=== PATIENT | female | born 1980 | race American Indian/Alaskan Native ===

== ENCOUNTER 2020-10-24 10:38 | Observation (INO) | payer SELFPAY ==
--- NOTE | 2020-10-24 10:52 | Emergency Department Report ---
Blank Doc - Documentation Documentation: 40-year-old female that presents with CP and SOB. HX of heroin use and last e pisode was 2 days ago. 1- This is a initial triage assessment/medical screening only. Full assessment and work-up will be completed once the patient is in proper hospital gown, ED bed and in a private room setting. This initial assessment/diagnostic orders/clinical plan/ treatment(s) is/are subject to change based on pt's health status, clinical progression and re-assessment by fellow clinical providers in the ED. Further treatment and workup at subsequent clinical providers discretion. Patient/guardians urged not to elope from ED as their condition may be serious if not clinically assessed and managed. 2-cardiac workup
[2020-10-24 12:13] LABS: Basophils % (Auto) 0.6 % (0.0-1.8); Eosinophils % (Auto) 0.6 % (0.0-4.3); Hematocrit 41.9 % (30.3-42.9); Hemoglobin 13.7 gm/dl (10.1-14.3); Lymphocytes # (Auto) 1.5 K/mm3 (1.2-5.4); Lymphocytes % (Auto) 27.3 % (13.4-35.0); Mean Corpuscular HGB Conc 33 % (30-34); Mean Corpuscular Volume 80 fl (79-97); Monocytes # (Auto) 0.3 K/mm3 (0.0-0.8); Monocytes % (Auto) 6.3 % (0.0-7.3); Platelet Count 268 K/mm3 (140-440); Red Blood Count 5.24 M/mm3 (3.65-5.03); Red Cell Distribution Width 14.7 % (13.2-15.2)
[2020-10-24 12:25] LABS: Partial Thromboplastin Time 29.2 Sec. (24.2-36.6)
[2020-10-24 12:37] LABS: Alanine Aminotransferase 13 units/L (7-56); Albumin 4.4 g/dL (3.9-5); Blood Urea Nitrogen 8 mg/dL (7-17); Calcium 9.6 mg/dL (8.4-10.2); Hemolysis Index 0
[2020-10-24 12:38] LABS: BUN/Creatinine Ratio 13
--- NOTE | 2020-10-24 13:13 | XRay Report ---
CHEST 2 VIEWS INDICATION / CLINICAL INFORMATION: Chest Pain. COMPARISON: None available. FINDINGS: SUPPORT DEVICES: None. HEART / MEDIASTINUM: No significant abnormality. LUNGS / PLEURA: No significant pulmonary or pleural abnormality. No pneumothorax. ADDITIONAL FINDINGS: No significant additional findings. IMPRESSION: 1. No acute findings. Signer Name: Luis Markham MD Signed: 10/24/2020 1:09 PM Workstation Name: [id number]
[2020-10-24] MEDS ORDERED: cloNIDine 0.2 MG TAB PO ONE ×2 (17:27→19:00)
[2020-10-24] MEDS ORDERED: ONDANSETRON 4 MG/2 ML INJ IV ONE (17:36)
[2020-10-24] MEDS ORDERED: MORPHINE 4 MG/1 ML INJ IV ONE (17:36)
--- NOTE | 2020-10-24 17:42 | Emergency Department Report ---
ED Chest Pain HPI - General Chief Complaint: Chest Pain Stated Complaint: CHEST PAIN/HERION WITHDRAWLS Time Seen by Provider: 10/24/20 10:49 Source: patient Mode of arrival: Ambulatory Limitations: No Limitations - History of Present Illness Initial Comments: 40-year-old female with history of heroin use disorder presents complaining of mid substernal and right-sided chest pain since last night. The patient states that she last used heroin 4 days ago. She says she snorts heroin and has never used IV drugs. She says that for the past 3 days she has been suffering from symptoms typical of opiate withdrawal first her including pain all over, gener alized abdominal pain, and some mild nausea without vomiting. However, she reports that the chest pain is new and different and started last night and has been constant since then. She states the pain radiates to the back. She also has had some paresthesias in her bilateral fingertips. She has not tried anything for her symptoms. There are no known aggravating or alleviating factors. She denies any associated shortness of breath, palpitations, radiation to the jaw or arms, focal weakness, headache, back pain, neck pain, fever, dysuria, vaginal bleeding, vaginal discharge, or any other complaints. - Related Data Previous Rx's Medication Instructions Recorded Last Taken Type AtorvaSTATin [Lipitor] 40 mg PO QHS #30 tablet 10/26/20 Unknown Rx Famotidine [Pepcid] 20 mg PO BID #60 tablet 10/26/20 Unknown Rx Losartan [Cozaar] 50 mg PO QDAY #30 tablet 10/26/20 Unknown Rx NIFEdipine XL [Procardia Xl] 60 mg PO Q12HR #60 tab 10/26/20 Unknown Rx oxyCODONE /ACETAMINOPHEN [Percocet 1 tab PO Q6H PRN #7 tablet 10/26/20 Unknown Rx 5/325 mg] traMADoL [Ultram 50 MG tab] 50 mg PO Q6H PRN #10 tablet 10/26/20 Unknown Rx Allergies Allergy/AdvReac Type Severity Reaction Status Date / Time aspirin Allergy Vomiting Verified 10/24/20 21:50 ibuprofen [From Motrin] Allergy Vomiting Verified 10/24/20 21:50 Heart Score - HEART Score History: Moderately suspicious EKG: Normal Age: < 45 Risk factors: 1-2 risk factors Troponin: < normal limit HEART Score: 2 - EKG Read Time Time EKG Completed: 10:52 EKG Read Time: 10:59 ED Review of Systems ROS: Stated complaint: CHEST PAIN/HERION WITHDRAWLS Other details as noted in HPI Constitutional: denies: chills, fever Eyes: denies: eye pain, vision change ENT: denies: throat pain, congestion Respiratory: denies: cough, shortness of breath Cardiovascular: chest pain. denies: palpitations, syncope Gastrointestinal: abdominal pain, nausea. denies: vomiting, diarrhea, constipation, melena Genitourinary: denies: dysuria, frequency, discharge Musculoskeletal: back pain. denies: joint swelling Skin: denies: rash, lesions Neurological: paresthesias. denies: headache, weakness, numbness Psychiatric: anxiety. denies: auditory hallucinations, visual hallucinations ED Past Medical Hx - Past Medical History Previous Medical History?: Yes Additional medical history: heroin x 2 years - Surgical History Past Surgical History?: No - Medications Home Medications: Home Medications Medication Instructions Recorded Confirmed Last Taken Type AtorvaSTATin [Lipitor] 40 mg PO QHS #30 tablet 10/26/20 Unknown Rx Famotidine [Pepcid] 20 mg PO BID #60 tablet 10/26/20 Unknown Rx Losartan [Cozaar] 50 mg PO QDAY #30 tablet 10/26/20 Unknown Rx NIFEdipine XL [Procardia Xl] 60 mg PO Q12HR #60 tab 10/26/20 Unknown Rx oxyCODONE /ACETAMINOPHEN [Percocet 1 tab PO Q6H PRN #7 tablet 10/26/20 Unknown Rx 5/325 mg] traMADoL [Ultram 50 MG tab] 50 mg PO Q6H PRN #10 tablet 10/26/20 Unknown Rx ED Physical Exam - General Limitations: No Limitations - Other Other exam information: GENERAL: Well developed and well nourished. Tearful and appears to be in pain. HEAD: Normocephalic. No obvious signs of trauma. ENT: Moist mucous membranes. EYES: Extraocular movements are intact. Pupils are equal round and reactive to light bilaterally NECK: Supple. Full ROM is intact. Trachea is midline. LUNGS: Nonlabored breathing. Equal chest rise bilaterally. Clear to auscultation bilaterally. CARDIOVASCULAR: Regular rate and rhythm. No murmurs or rubs. CHEST: There is tenderness of the mid-substernal and right side of the chest just superior to the breat. No erythema, fluctuance, or skin changes. VASCULAR: Cap refill < 2 seconds. 2+ peripheral pulses in all four extremities ABDOMEN: Abdomen is soft and nondistended. There is mild diffuse tenderness in all 4 quadrants of the abdomen without guarding or rebound tenderness. No hernias SKIN: Skin is warm and slightly diaphoretic NEURO: Patient is awake, alert, and oriented. vp lab II-XII grossly intact. No focal deficits. Normal motor and sensory exam throughout. Normal speech. MUSCULOSKELETAL: No obvious deformities. No significant tenderness. Normal ROM throughout. BACK/SPINE: No midline tenderness or step-offs of the C/T/L spine. No costovertebral angle tenderness. ED Course Vital Signs 10/24/20 10/24/20 10/24/20 10:47 17:45 18:37 Temperature 98.5 F Pulse Rate 82 79 82 Respiratory 22 16 Rate Blood Pressure 202/109 Blood Pressure 195/95 201/103 [Left] O2 Sat by Pulse 100 99 100 Oximetry 10/24/20 10/24/20 10/24/20 19:55 20:04 20:16 Temperature Pulse Rate 78 Respiratory 19 Rate Blood Pressure 184/84 Blood Pressure [Left] O2 Sat by Pulse 99 100 Oximetry 10/24/20 10/24/20 10/24/20 20:19 20:21 20:31 Temperature Pulse Rate Respiratory Rate Blood Pressure 184/84 184/84 174/82 Blood Pressure [Left] O2 Sat by Pulse 100 99 99 Oximetry 10/24/20 10/24/20 10/24/20 20:41 20:51 21:01 Temperature Pulse Rate Respiratory Rate Blood Pressure 174/82 174/82 174/82 Blood Pressure [Left] O2 Sat by Pulse 99 98 99 Oximetry 10/24/20 10/24/20 10/24/20 21:11 21:21 21:52 Temperature Pulse Rate Respiratory Rate Blood Pressure 174/82 174/82 184/101 Blood Pressure [Left] O2 Sat by Pulse 98 100 73 L Oximetry 10/24/20 10/24/20 10/25/20 22:04 22:14 00:39 Temperature Pulse Rate 74 Respiratory 18 Rate Blood Pressure 184/101 184/101 Blood Pressure 148/77 [Left] O2 Sat by Pulse 99 Oximetry 10/25/20 01:36 Temperature Pulse Rate Respiratory Rate Blood Pressure Blood Pressure [Left] O2 Sat by Pulse 99 Oximetry RADHA score - Radha Score Age > 65: (0) No Aspirin use within the Past 7 Days: (0) No 3 or more CAD Risk Factors: (0) No 2 or more Angina events in past 24 hrs: (0) No Known CAD with more than 50% Stenosis: (0) No Elevated Cardiac Markers: (0) No ST Deviation Greater than 0.5mm: (0) No RADHA Score: 0 ED Medical Decision Making - Lab Data Result diagrams: 10/24/20 22:55 10/25/20 04:35 Lab Results 10/24/20 10/24/20 10/24/20 Range/Units 11:35 11:35 11:35 WBC 5.5 (4.5-11.0) K/mm3 RBC 5.24 H (3.65-5.03) M/mm3 Hgb 13.7 (10.1-14.3) gm/dl Hct 41.9 (30.3-42.9) % MCV 80 (79-97) fl MCH 26 L (28-32) pg MCHC 33 (30-34) % RDW 14.7 (13.2-15.2) % Plt Count 268 (140-440) K/mm3 Lymph % (Auto) 27.3 (13.4-35.0) % [place] % (Auto) 6.3 (0.0-7.3) % Eos % (Auto) 0.6 (0.0-4.3) % Baso % (Auto) 0.6 (0.0-1.8) % Lymph # (Auto) 1.5 (1.2-5.4) K/mm3 [place] # (Auto) 0.3 (0.0-0.8) K/mm3 Eos # (Auto) 0.0 (0.0-0.4) K/mm3 Baso # (Auto) 0.0 (0.0-0.1) K/mm3 Seg Neutrophils % 65.2 (40.0-70.0) % Seg Neutrophils # 3.6 (1.8-7.7) K/mm3 PT (12.2-14.9) Sec. INR (0.87-1.13) APTT (24.2-36.6) Sec. Sodium 134 L (137-145) mmol/L Potassium 3.9 (3.6-5.0) mmol/L Chloride 98.9 (98-107) mmol/L Carbon Dioxide 25 (22-30) mmol/L Anion Gap 14 mmol/L BUN 8 (7-17) mg/dL Creatinine 0.6 (0.6-1.2) mg/dL Estimated GFR > 60 ml/min BUN/Creatinine Ratio 13 % Glucose 100 (65-100) mg/dL Calcium 9.6 (8.4-10.2) mg/dL Total Bilirubin 0.20 (0.1-1.2) mg/dL AST 12 (5-40) units/L ALT 13 (7-56) units/L Alkaline Phosphatase 54 (35-129) units/L Troponin T (0.00-0.029) ng/mL Total Protein 7.3 (6.3-8.2) g/dL Albumin 4.4 (3.9-5) g/dL Albumin/Globulin Ratio 1.5 % HCG, Qual Negative (Negative) Salicylates (2.8-20.0) mg/dL Acetaminophen (10.0-30.0) ug/mL Plasma/Serum Alcohol (0-0.07) % 10/24/20 10/24/20 10/24/20 Range/Units 11:35 11:35 11:35 WBC (4.5-11.0) K/mm3 RBC (3.65-5.03) M/mm3 Hgb (10.1-14.3) gm/dl Hct (30.3-42.9) % MCV (79-97) fl MCH (28-32) pg MCHC (30-34) % RDW (13.2-15.2) % Plt Count (140-440) K/mm3 Lymph % (Auto) (13.4-35.0) % [place] % (Auto) (0.0-7.3) % Eos % (Auto) (0.0-4.3) % Baso % (Auto) (0.0-1.8) % Lymph # (Auto) (1.2-5.4) K/mm3 [place] # (Auto) (0.0-0.8) K/mm3 Eos # (Auto) (0.0-0.4) K/mm3 Baso # (Auto) (0.0-0.1) K/mm3 Seg Neutrophils % (40.0-70.0) % Seg Neutrophils # (1.8-7.7) K/mm3 PT 13.8 (12.2-14.9) Sec. INR 1.00 (0.87-1.13) APTT 29.2 (24.2-36.6) Sec. Sodium (137-145) mmol/L Potassium (3.6-5.0) mmol/L Chloride (98-107) mmol/L Carbon Dioxide (22-30) mmol/L Anion Gap mmol/L BUN (7-17) mg/dL Creatinine (0.6-1.2) mg/dL Estimated GFR ml/min BUN/Creatinine Ratio % Glucose (65-100) mg/dL Calcium (8.4-10.2) mg/dL Total Bilirubin (0.1-1.2) mg/dL AST (5-40) units/L ALT (7-56) units/L Alkaline Phosphatase (35-129) units/L Troponin T < 0.010 (0.00-0.029) ng/mL Total Protein (6.3-8.2) g/dL Albumin (3.9-5) g/dL Albumin/Globulin Ratio % HCG, Qual (Negative) Salicylates < 0.3 L (2.8-20.0) mg/dL Acetaminophen (10.0-30.0) ug/mL Plasma/Serum Alcohol (0-0.07) % 10/24/20 10/24/20 10/24/20 Range/Units 11:35 11:35 14:35 WBC (4.5-11.0) K/mm3 RBC (3.65-5.03) M/mm3 Hgb (10.1-14.3) gm/dl Hct (30.3-42.9) % MCV (79-97) fl MCH (28-32) pg MCHC (30-34) % RDW (13.2-15.2) % Plt Count (140-440) K/mm3 Lymph % (Auto) (13.4-35.0) % [place] % (Auto) (0.0-7.3) % Eos % (Auto) (0.0-4.3) % Baso % (Auto) (0.0-1.8) % Lymph # (Auto) (1.2-5.4) K/mm3 [place] # (Auto) (0.0-0.8) K/mm3 Eos # (Auto) (0.0-0.4) K/mm3 Baso # (Auto) (0.0-0.1) K/mm3 Seg Neutrophils % (40.0-70.0) % Seg Neutrophils # (1.8-7.7) K/mm3 PT (12.2-14.9) Sec. INR (0.87-1.13) APTT (24.2-36.6) Sec. Sodium (137-145) mmol/L Potassium (3.6-5.0) mmol/L Chloride (98-107) mmol/L Carbon Dioxide (22-30) mmol/L Anion Gap mmol/L BUN (7-17) mg/dL Creatinine (0.6-1.2) mg/dL Estimated GFR ml/min BUN/Creatinine Ratio % Glucose (65-100) mg/dL Calcium (8.4-10.2) mg/dL Total Bilirubin (0.1-1.2) mg/dL AST (5-40) units/L ALT (7-56) units/L Alkaline Phosphatase (35-129) units/L Troponin T < 0.010 (0.00-0.029) ng/mL Total Protein (6.3-8.2) g/dL Albumin (3.9-5) g/dL Albumin/Globulin Ratio % HCG, Qual (Negative) Salicylates (2.8-20.0) mg/dL Acetaminophen 6.7 L (10.0-30.0) ug/mL Plasma/Serum Alcohol < 0.01 (0-0.07) % 10/24/20 Range/Units 20:51 WBC (4.5-11.0) K/mm3 RBC (3.65-5.03) M/mm3 Hgb (10.1-14.3) gm/dl Hct (30.3-42.9) % MCV (79-97) fl MCH (28-32) pg MCHC (30-34) % RDW (13.2-15.2) % Plt Count (140-440) K/mm3 Lymph % (Auto) (13.4-35.0) % [place] % (Auto) (0.0-7.3) % Eos % (Auto) (0.0-4.3) % Baso % (Auto) (0.0-1.8) % Lymph # (Auto) (1.2-5.4) K/mm3 [place] # (Auto) (0.0-0.8) K/mm3 Eos # (Auto) (0.0-0.4) K/mm3 Baso # (Auto) (0.0-0.1) K/mm3 Seg Neutrophils % (40.0-70.0) % Seg Neutrophils # (1.8-7.7) K/mm3 PT (12.2-14.9) Sec. INR (0.87-1.13) APTT (24.2-36.6) Sec. Sodium (137-145) mmol/L Potassium (3.6-5.0) mmol/L Chloride (98-107) mmol/L Carbon Dioxide (22-30) mmol/L Anion Gap mmol/L BUN (7-17) mg/dL Creatinine (0.6-1.2) mg/dL Estimated GFR ml/min BUN/Creatinine Ratio % Glucose (65-100) mg/dL Calcium (8.4-10.2) mg/dL Total Bilirubin (0.1-1.2) mg/dL AST (5-40) units/L ALT (7-56) units/L Alkaline Phosphatase (35-129) units/L Troponin T < 0.010 (0.00-0.029) ng/mL Total Protein (6.3-8.2) g/dL Albumin (3.9-5) g/dL Albumin/Globulin Ratio % HCG, Qual (Negative) Salicylates (2.8-20.0) mg/dL Acetaminophen (10.0-30.0) ug/mL Plasma/Serum Alcohol (0-0.07) % - EKG Data -: EKG Interpreted by Pa - EKG Data 10/24/20 17:42 Normal sinus rhythm. Normal axis. Normal intervals. No ectopy. No signific ant ST segment or T wave abnormalities. - Radiology Data CHEST 2 VIEWS INDICATION / CLINICAL INFORMATION: Chest Pain. COMPARISON: None available. FINDINGS: SUPPORT DEVICES: None. HEART / MEDIASTINUM: No significant abnormality. LUNGS / PLEURA: No significant pulmonary or pleural abnormality. No pneumothorax. ADDITIONAL FINDINGS: No significant additional findings. IMPRESSION: 1. No acute findings. Signer Name: Luis Markham MD Signed: 10/24/2020 12:09 PM Workstation Name: [id number] CTA CHEST, ABDOMEN, AND PELVIS WITHOUT AND WITH CONTRAST INDICATION / CLINICAL INFORMATION: assess for aortic dissection. TECHNIQUE: Axial CT images were obtained through the chest, abdomen, and pelvis before and after injection of IV contrast. 3 plane MIP and/or 3D reconstructions were produced. All CT scans at this location are performed using CT dose reduction for ALARA by means of automated exposure control. COMPARISON: None available. FINDINGS: HEART: No significant abnormality. THORACIC AORTA: No significant abnormality. GREAT VESSELS: No significant abnormality. PULMONARY ARTERIES: No significant abnormality. ADDITIONAL CHEST FINDINGS: Lungs are clear. No adenopathy. ABDOMINAL AORTA: No significant abnormality. RENAL ARTERIES: No significant abnormality. CELIAC ARTERY: No significant abnormality. SUPERIOR MESENTERIC ARTERY: No significant abnormality. INFERIOR MESENTERIC ARTERY: No significant abnormality. RIGHT ILIAC ARTERIES: No significant abnormality.. LEFT ILIAC ARTERIES: No significant abnormality.. ADDITIONAL ABDOMINOPELVIC FINDINGS: Mo tion artifact limits evaluation of the upper abdomen. Liver, pancreas, spleen, adrenals, kidneys, and bladder demonstrate no acute abnormality. 6.7 cm left adnexal cystic structure. No bowel obstruction or inflammation. No free fluid or adenopathy. SKELETAL STRUCTURES: No significant abnormality. IMPRESSION: 1. No acute abnormality of the chest, abdomen, or pelvis. No evidence of aortic dissection or injury. 2. 6.7 cm left adnexal cystic structure. Recommend further characterization with pelvic ultrasound. Follow-up for Incidental Adnexal Cystic Mass on CT or MRI ( 1 cm)* *Based on the 2013 White Paper of the [employer] Incidental Findings Committee on Adnexal Findings Probable benign cyst, reproductive age (< 50 yo) Pre-menopausal with benign appearing cyst with one or more features (angulated margins; not round/oval; portion of cyst poorly imaged; or image with reduced [id number] ratio): <= 3 cm - Benign; no follow-up recommended 3-5 cm - Ultrasound follow-up recommended at 6- 12 wk > 5 cm - Ultrasound should be performed promptly for further characteri zation Signer Name: Destin Skaggs MD Signed: 10/24/2020 5:36 PM Workstation Name: [id number] ULTRASOUND PELVIS INDICATION / CLINICAL INFORMATION: Large adnexal mass on CT. TECHNIQUE: Transabdominal. Duplex Color Doppler used: Yes. COMPARISON: Same- day CT FINDINGS: UTERUS: The uterus measures 8.4 cm. The uterus demonstrates a normal sonographic appearance. The endometrial stripe measures 0.6 cm. RIGHT ADNEXA: No significant ovarian cyst or mass. Normal color Doppler blood flow. LEFT ADNEXA: There is a complex multiseptated cystic structure in the left ovary, measuring 5.6 x 4.7 x 5.8 cm. There is normal color Doppler flow to left ovary. URINARY BLADDER: No significant abnormality. FREE FLUID: None. ADDITIONAL FINDINGS: None. IMPRESSION: 1. Complex multiseptated cystic struc ture in the left ovary measuring up to 5.8 cm. This most likely reflects a hemorrhagic cyst, though follow-up pelvic ultrasound in 6 weeks is recommended to assess resolution. 2. Normal color Doppler flow of the ovaries. No evidence of torsion. No acute abnormality. Signer Name: Destin Skaggs MD Signed: 10/24/2020 6:52 PM Workstation Name: [id number] - Medical Decision Making 40-year-old female with history of heroin use disorder presents complaining of Mid substernal and right-sided chest pain since last night as well as 3 days of symptoms typical of opiate withdrawal for her including generalized pain all over, generalized abdominal pain and some mild nausea without vomiting.Patient says last used heroin 4 days ago. She says she snorts heroin and has never used IV drugs. The patient describes chest pain that is constant, severe, and radiates to her back. She also says that she has had paresthesias in her fingertips/hands. On initial assessment, the patient is noted to be afebrile and with normal vital signs with the exception of severely elevated blood pressure of 202/109. Labs were drawn in triage and reveal no significant leukocytosis or anemia. Kidney function is normal and there are no significant electrolyte abnormalities. Troponin has been negative x2. The patient's heart score is 2. EKG does not show any ischemic changes. Chest x-ray shows no acute abnormalities. On physical exam, the patient's tearful and appears to be in pain. She is slightly diaphoretic. Lungs are clear to auscultation and heart sounds are normal. She has 2+ peripheral pulses in all 4 extremities. She has a nonfocal neurologic exam. She does have mild generalized abdominal tenderness without guarding or rebound. No CVA tenderness. No tachycardia. No hypoxia. No recent travel, surgery, or prolonged immobilization. Although the patient's elevated blood pressure may be secondary to opiate withdrawal, given the patient's presenting symptoms I have ordered CTA of the chest/abdomen/pelvis to assess for evidence of aortic dissection versus less likely PE versus other abnormality of the chest/abdomen/pelvis. I have asked the nurse to place the patient on monitor and storage bin tender. I have ordered 8 mg of IV morphine and 4 mg of Zofran for pain control and to see if providing an opiate will decrease the patient's blood pressure. We will continue to monitor her very closely. On repeat assessment at 6:30 PM, the patient is lying comfortably in the bed. She reports that her pain is much improved all over and she has only very mild residual chest pain. The patient's blood pressure remains elevated in the 200s systolic. Patient has not been given aspirin given pending CTA of the chest and she has an allergy to aspirin. CTA of the chest/abdomen/pelvis shows no evidence of aortic dissection or other intrathoracic abnormality, however, there is a finding of a 6.7 cm left adnexal cystic structure with recommendation for ultrasound. With this additional finding I have ordered a pelvic ultrasound with color flow to assess for evidenc e of ovarian torsion. Went to reassess the patient again immediately after the CTA resulted and reexamined her. On repeat examination although she is still with mild diffuse abdominal tenderness she has point tenderness in the region of the left adnexa. She again denies having any vaginal discharge, dysuria, vaginal bleeding, or any other notable LACQUER SHADER symptoms. Nonetheless, with this additional finding and my concern for possible ovarian torsion I have placed a call to the [employer] [facility] on-call. At 7:36 PM I spoke with Dr. Barajas of [employer] regarding the case. He agrees with current work-up and management and request that I call him back with the results of the pelvic ultrasound. The patient's blood pressure remains elevated at 8 PM. I have ordered 0.2 mg of clonidine, 1 mg of Dilaudid, and 1 mg of Ativan to treat both opiate withdrawal and to lower the patient's blood pressure. Will continue to monitor very closely. At 8:20 PM, pelvic ultrasound shows normal color flow to both ovaries but a 5.6 cm complex septated cystic structure most likely representing a hemorrhagic cyst. At 8:26 PM I spoke over the phone with Dr. Barajas regarding the results of the pelvic ultrasound. He states that he also reviewed the CT imaging himself and agrees with the diagnosis of likely hemorrhagic cyst. He states that if the patient is admitted for her blood pressure he will consult and provide further recommendations. He says that this is not in and of itself an indication for admission but if she is discharged she will need to follow-up in his office in 1 week. At 8:50 PM, the patient's blood pressure remains elevated in the 180s systolic, this is despite multiple doses of IV opiates. Clonidine is still ordered and not given. Nonetheless, given that the patient has had prolonged critically elevated blood pressure, she will need to be admitted for further management. We will continue to monitor her blood pressure and give further meds until her BP is reduced with goal SBP < 170. This was explained to the patient who expressed understanding agreement with the plan of care. Shortly after 9 PM I spoke with Dr. Khan, the on-call hospitalist regarding the case and he accepts the patient for admission. Urinalysis and UDS is still pending. I have placed a consult for Dr. Barajas of [facility] to provide further inpatient recommendations. Critical Care Time: Yes Critical care time in (mins) excluding proc time.: 90 Critical care attestation.: If time is entered above; I have spent that time in minutes in the direct care of this critically ill patient, excluding procedure time. Critical care time was spent in the evaluation, assessment, work-up, and management of chest pain and critical hypertensive urgency requiring multiple doses of IV medications and clonidine as well as opiate withdrawal requiring CTA of the chest/abdomen/pelvis to assess for evidence of life-threatening aortic dissection, large left adnexal cyst concerning for ovarian torsion requiring stat ultrasound and emergency consultation with specialist as well as frequent reevaluation and reassessment ED Disposition Clinical Impression: Hypertensive urgency, Opiate withdrawal, Opiate abuse, continuous, Chest pain, Hemorrhagic cyst of ovary Disposition: 09 ADMITTED INPATIENT Is pt being admited?: Yes Condition: Stable
--- NOTE | 2020-10-24 18:36 | Cat Scan Report ---
Note: Please see concurrent CTA of the abdomen and pelvis for findings in the chest. Signer Name: Destin Skaggs MD Signed: 10/24/2020 6:31 PM Workstation Name: [id number]
--- NOTE | 2020-10-24 18:40 | Cat Scan Report ---
CTA CHEST, ABDOMEN, AND PELVIS WITHOUT AND WITH CONTRAST INDICATION / CLINICAL INFORMATION: assess for aortic dissection. TECHNIQUE: Axial CT images were obtained through the chest, abdomen, and pelvis before and after injection of IV contrast. 3 plane MIP and/or 3D reconstructions were produced. All CT scans at this location are per formed using CT dose reduction for ALARA by means of automated exposure control. COMPARISON: None available. FINDINGS: HEART: No significant abnormality. THORACIC AORTA: No significant abnormality. GREAT VESSELS: No significant abnormality. PULMONARY ARTERIES: No significant abnormality. ADDITIONAL CHEST FINDINGS: Lungs are clear. No adenopathy. ABDOMINAL AORTA: No significant abnormality. RENAL ARTERIES: No significant abnormality. CELIAC ARTERY: No significant abnormality. SUPERIOR MESENTERIC ARTERY: No significant abnormality. INFERIOR MESENTERIC ARTERY: No significant abnormality. RIGHT ILIAC ARTERIES: No significant abnormality.. LEFT ILIAC ARTERIES: No significant abnormality.. ADDITIONAL ABDOMINOPELVIC FINDINGS: Motion artifact limits evaluation of the upper abdomen. Liver, pa ncreas, spleen, adrenals, kidneys, and bladder demonstrate no acute abnormality. 6.7 cm left adnexal cystic structure. No bowel obstruction or inflammation. No free fluid or adenopathy. SKELETAL STRUCTURES: No significant abnormality. IMPRESSION: 1. No acute abnormality of the chest, abdomen, or pelvis. No evidence of aortic dissection or injury. 2. 6.7 cm left adnexal cystic structure. Recommend further characterization with pelvic ultrasound. Follow-up for Incidental Adnexal Cystic Mass on CT or MRI ( 1 cm)* *Based on the 2013 White Paper of the [employer] Incidental Findings Committee on Adnexal Findings Probable benign cyst, reproductive age (< 50 yo) Pre-menopausal with benign appearing cyst with one or more features (angulated margins; not round/ova l; portion of cyst poorly imaged; or image with reduced [id number] ratio): <= 3 cm - Benign; no follow-up recommended 3-5 cm - Ultrasound follow-up recommended at 6-12 wk > 5 cm - Ultrasound should be performed promptly for further characterization Signer Name: Destin Skaggs MD Signed: 10/24/2020 6:36 PM Workstation Name: [id number]
[2020-10-24] MEDS ORDERED: LORazepam 2 MG/ML VIAL IV ONE (19:00)
[2020-10-24] MEDS ORDERED: HYDROmorphone 1 MG/1 ML INJ IV ONE (19:38)
--- NOTE | 2020-10-24 19:56 | Ultrasound Report ---
ULTRASOUND PELVIS INDICATION / CLINICAL INFORMATION: Large adnexal mass on CT. TECHNIQUE: Transabdominal. Duplex Color Doppler used: Yes. COMPARISON: Same-day CT FINDINGS: UTERUS: The uterus measures 8.4 cm. The uterus demonstrates a normal sonographic appearance. The end ometrial stripe measures 0.6 cm. RIGHT ADNEXA: No significant ovarian cyst or mass. Normal color Doppler blood flow. LEFT ADNEXA: There is a complex multiseptated cystic structure in the left ovary, measuring 5.6 x 4.7 x 5.8 cm. There is normal color Doppler flow to left ovary. URINARY BLADDER: No significant abnormality. FREE FLUID: None. ADDITIONAL FINDINGS: None. IMPRESSION: 1. Complex multiseptated cystic structure in the left ovary measuring up to 5.8 cm. This most likely reflects a hemorrhagic cyst, though follow-up pelvic ultrasound in 6 weeks is recommended to assess r esolution. 2. Normal color Doppler flow of the ovaries. No evidence of torsion. No acute abnormality. Signer Name: Destin Skaggs MD Signed: 10/24/2020 7:52 PM Workstation Name: [id number]
[2020-10-24] MEDS ORDERED: traMADol 50 MG TAB PO PRN (21:42)
[2020-10-24] MEDS ORDERED: ONDANSETRON 4 MG/2 ML INJ IV PRN (21:42)
[2020-10-24] MEDS ORDERED: ACETAMINOPHEN 325 MG TAB PO PRN ×2 (21:42)
[2020-10-24] MEDS ORDERED: ALBUTEROL 2.5 MG/3 ML NEBU IH PRN (21:42)
[2020-10-24] MEDS ORDERED: hydrALAZINE 20 MG/1 ML INJ IV PRN (21:47)
[2020-10-24] MEDS ORDERED: cloNIDine 0.2 MG TAB PO PRN (21:47)
--- NOTE | 2020-10-24 21:53 | History and Physical Report ---
History of Present Illness Date of examination: 10/24/20 Date of admission: 10/24/20 Chief complaint: Chest pain High blood pressure History of present illness: 40-year-old female with history of heroin use disorder was brought to the emergency room because of mid substernal and right-sided chest pain since last night. The patient used heroin 4 days ago. She says she snorts heroin and has never used IV drugs. She says that for the past 3 days she has been suffering from symptoms typical of opiate withdrawal first her including pain all over, generalized abdominal pain, and some mild nausea without vomiting. However, she reports that the chest pain is new and different and started last night and has been constant since then. She states the pain radiates to the back. She also has had some paresthesias in her bilateral fingertips. She has not tried anything for her symptoms. There are no known aggravating or alleviating factors. She denies any associated shortness of breath, palpitations, radiation to the jaw or arms, focal weakness, headache, back pain, neck pain, fever, dysuria, vaginal bleeding, vaginal discharge, or any other complaints. Initial cardiac enzyme is negative troponin is 0.010 CT scan of the abdomen shows 6.7 cm left adnexal cystic structure. In the emergency room patient is found to have pressure of 202/109 Past History Past Medical History: other (Heroin abuse) Medications and Allergies Allergies Allergy/AdvReac Type Severity Reaction Status Date / Time aspirin Allergy Vomiting Verified 10/24/20 10:46 ibuprofen [From Motrin] Allergy Vomiting Verified 10/24/20 10:47 Active Meds: Active Medications Acetaminophen (Acetaminophen 325 Mg Tab) 650 mg PO Q4H PRN PRN Reason: Pain MILD(1-3)/Fever >100.5/ADAMS Acetaminophen (Acetaminophen 325 Mg Tab) 650 mg PO Q6H PRN PRN Reason: Pain, Mild (1-3) Albuterol (Albuterol 2.5 Mg/3 Ml Nebu) 2.5 mg IH Q4HRT PRN PRN Reason: Shortness Of Breath Albuterol/Ipratropium (Ipratropium/Albuterol Sulfate 3 Ml Ampul.Neb) 1 ampul IH Q6HRT [facility] Atorvastatin Calcium (Atorvastatin 40 Mg Tab) 40 mg PO QHS [facility] Famotidine (Famotidine 20 Mg Tab) 20 mg PO BID [facility] Heparin Sodium (Porcine) (Heparin 5,000 Unit/1 Ml Vial) 5,000 unit SUB-Q Q12HR [facility] Hydromorphone HCl (Hydromorphone 1 Mg/1 Ml Inj) 0.5 mg IV Q3H PRN PRN Reason: Pain , Severe (7-10) Ondansetron HCl (Ondansetron 4 Mg/2 Ml Inj) 4 mg IV Q8H PRN PRN Reason: Nausea And Vomiting Oxycodone/Acetaminophen (Oxycodone /Acetaminophen 5-325mg Tab) 1 tab PO Q6H PRN PRN Reason: Pain, Moderate (4-6) Sodium Chloride (Sodium Chloride 0.9% 10 Ml Flush Syringe) 10 ml IV BID [facility] Sodium Chloride (Sodium Chloride 0.9% 10 Ml Flush Syringe) 10 ml IV PRN PRN PRN Reason: LINE FLUSH Sodium Chloride (Sodium Chloride 0.9% 10 Ml Flush Syringe) 10 ml IV PRN PRN PRN Reason: LINE FLUSH Tramadol HCl (Tramadol 50 Mg Tab) 50 mg PO Q6H PRN PRN Reason: Pain, Moderate (4-6) Review of Systems All systems: negative Constitutional: other (Heroin withdrawal) Cardiovascular: chest pain Gastrointestinal: abdominal pain, nausea Exam - Constitutional Vitals: Temp Pulse Resp BP Pulse Ox 98.5 F 78 19 184/84 100 10/24/20 10:47 10/24/20 20:16 10/24/20 20:16 10/24/20 20:16 10/24/20 18:37 General appearance: Present: no acute distress, well-nourished - EENT Eyes: Present: PERRL ENT: hearing intact, clear oral mucosa - Neck Neck: Present: supple, normal ROM - Respiratory Respiratory effort: normal Respiratory: bilateral: diminished - Cardiovascular Heart Sounds: Present: S1 & S2. Absent: rub, click - Extremities Extremities: pulses symmetrical, No edema Peripheral Pulses: within normal limits - Abdominal General gastrointestinal: Present: soft, non-tender, non-distended, normal bowel sounds Female genitourinary: Present: normal - Integumentary Integumentary: Present: clear, warm, dry - Musculoskeletal Musculoskeletal: gait normal, strength equal bilaterally - Psychiatric Psychiatric: appropriate mood/affect, intact judgment & insight - Neurologic Neurologic: CNII-XII intact, moves all extremities HEART Score - HEART Score EKG: Normal Age: < 45 Risk factors: 1-2 risk factors Troponin: Troponin T < 0.010 ng/mL (0.00-0.029) 10/24/20 20:51 Troponin: < normal limit Results - Labs CBC & Chem 7: 10/24/20 11:35 10/24/20 11:35 Labs: Laboratory Last Values WBC 5.5 K/mm3 (4.5-11.0) 10/24/20 11:35 RBC 5.24 M/mm3 (3.65-5.03) H 10/24/20 11:35 Hgb 13.7 gm/dl (10.1-14.3) 10/24/20 11:35 Hct 41.9 % (30.3-42.9) 10/24/20 11:35 MCV 80 fl (79-97) 10/24/20 11:35 MCH 26 pg (28-32) L 10/24/20 11:35 MCHC 33 % (30-34) 10/24/20 11:35 RDW 14.7 % (13.2-15.2) 10/24/20 11:35 Plt Count 268 K/mm3 (140-440) 10/24/20 11:35 Lymph % (Auto) 27.3 % (13.4-35.0) 10/24/20 11:35 [place] % (Auto) 6.3 % (0.0-7.3) 10/24/20 11:35 Eos % (Auto) 0.6 % (0.0-4.3) 10/24/20 11:35 Baso % (Auto) 0.6 % (0.0-1.8) 10/24/20 11:35 Lymph # (Auto) 1.5 K/mm3 (1.2-5.4) 10/24/20 11:35 [place] # (Auto) 0.3 K/mm3 (0.0-0.8) 10/24/20 11:35 Eos # (Auto) 0.0 K/mm3 (0.0-0.4) 10/24/20 11:35 Baso # (Auto) 0.0 K/mm3 (0.0-0.1) 10/24/20 11:35 Seg Neutrophils % 65.2 % (40.0-70.0) 10/24/20 11:35 Seg Neutrophils # 3.6 K/mm3 (1.8-7.7) 10/24/20 11:35 PT 13.8 Sec. (12.2-14.9) 10/24/20 11:35 INR 1.00 (0.87-1.13) 10/24/20 11:35 APTT 29.2 Sec. (24.2-36.6) 10/24/20 11:35 Sodium 134 mmol/L (137-145) L 10/24/20 11:35 Potassium 3.9 mmol/L (3.6-5.0) 10/24/20 11:35 Chloride 98.9 mmol/L (98-107) 10/24/20 11:35 Carbon Dioxide 25 mmol/L (22-30) 10/24/20 11:35 Anion Gap 14 mmol/L 10/24/20 11:35 BUN 8 mg/dL (7-17) 10/24/20 11:35 Creatinine 0.6 mg/dL (0.6-1.2) 10/24/20 11:35 Estimated GFR > 60 ml/min 10/24/20 11:35 BUN/Creatinine Ratio 13 % 10/24/20 11:35 Glucose 100 mg/dL (65-100) 10/24/20 11:35 Calcium 9.6 mg/dL (8.4-10.2) 10/24/20 11:35 Total Bilirubin 0.20 mg/dL (0.1-1.2) 10/24/20 11:35 AST 12 units/L (5-40) 10/24/20 11:35 ALT 13 units/L (7-56) 10/24/20 11:35 Alkaline Phosphatase 54 units/L (35-129) 10/24/20 11:35 Troponin T < 0.010 ng/mL (0.00-0.029) 10/24/20 20:51 Total Protein 7.3 g/dL (6.3-8.2) 10/24/20 11:35 Albumin 4.4 g/dL (3.9-5) 10/24/20 11:35 Albumin/Globulin Ratio 1.5 % 10/24/20 11:35 HCG, Qual Negative (Negative) 10/24/20 11:35 Salicylates < 0.3 mg/dL (2.8-20.0) L 10/24/20 11:35 Acetaminophen 6.7 ug/mL (10.0-30.0) L 10/24/20 11:35 Plasma/Serum Alcohol < 0.01 % (0-0.07) 10/24/20 11:35 - Imaging and Cardiology CT scan - abdomen: report reviewed Assessment and Plan VTE prophylaxis?: Chemical Plan of care discussed with patient/family: Yes - Patient Problems (1) Acute coronary syndrome Current Visit: Yes Status: Acute Plan to address problem: Admit the patient to the medical floor. Plavix 75 mg p.o. daily. Lipitor 40 mg p.o. daily. Nitroglycerin as needed. Due to the serial cardiac enzyme. Echocardiogram. Consult cardiology if needed (2) Hypertensive urgency Current Visit: Yes Status: Acute Plan to address problem: We will put the patient hydralazine 10 mg IV every 6 hours as needed clonidine 0.2 mg every 4 hours as needed. Norvasc 5 mg p.o. daily. We counseled saldelgado melodie quit taking heroin (3) Heroin abuse Current Visit: Yes Status: Acute Plan to address problem: We counseled regarding quit taking heroin. We will put the patient on clonidine. We will monitor the patient closely (4) Hemorrhagic cyst of ovary Current Visit: Yes Status: Acute Plan to address problem: We will consult [employer] for evaluation. Monitor the patient closely (5) DVT prophylaxis Current Visit: Yes Status: Acute Plan to address problem: Heparin 5000 units subcu every 12 hours for DVT prophylaxis. Pepcid 20 mg p.o. twice daily for GI prophylaxis. Patient is a full code
[2020-10-24] MEDS: HEPARIN 5,000 UNIT/1 ML VIAL SUB-Q SCH (22:16)
[2020-10-24] MEDS: FAMOTIDINE 20 MG TAB PO SCH (22:16)
[2020-10-24] MEDS: HYDROmorphone 1 MG/1 ML INJ IV PRN (22:17)
[2020-10-24 23:57] LABS: Basophils % (Auto) 0.4 % (0.0-1.8); Eosinophils # (Auto) 0.1 K/mm3 (0.0-0.4); Eosinophils % (Auto) 1.6 % (0.0-4.3); Hematocrit 38.8 % (30.3-42.9); Hemoglobin 12.8 gm/dl (10.1-14.3); Lymphocytes # (Auto) 3.2 K/mm3 (1.2-5.4); Lymphocytes % (Auto) 43.3 % (13.4-35.0); Mean Corpuscular HGB Conc 33 % (30-34); Mean Corpuscular Volume 79 fl (79-97); Monocytes # (Auto) 0.6 K/mm3 (0.0-0.8); Monocytes % (Auto) 8.7 % (0.0-7.3); Platelet Count 232 K/mm3 (140-440); Red Cell Distribution Width 14.4 % (13.2-15.2)
[2020-10-25 00:07] LABS: Blood Urea Nitrogen 8 mg/dL (7-17); Hemolysis Index 3
[2020-10-25] MEDS: oxyCODONE /ACETAMINOPHEN 5-325MG TAB PO PRN (00:10)
[2020-10-25 00:35] LABS: BUN/Creatinine Ratio 11
[2020-10-25 00:42] LABS: Bilirubin,Urine NEG (Negative); Blood,Urine NEG (Negative); Color,Urine Yellow (Yellow); Mucus,Urine FEW /HPF; Protein,Urine <15 mg/dL mg/dL (Negative); Urobilinogen,Urine < 2.0 mg/dL (<2.0); WBC,Urine < 1.0 /HPF (0.0-6.0)
[2020-10-25 00:43] LABS: Amphetamine Screen,Urine PRESUMPTIVE NEGATIVE; Benzodiazepines Screen,Urine PRESUMPTIVE NEGATIVE; Cannabinoid Screen,Urine PRESUMPTIVE NEGATIVE; Cocaine Screen,Urine PRESUMPTIVE NEGATIVE; Methadone Screen,Urine PRESUMPTIVE NEGATIVE; Opiate Screen,Urine PRESUMPTIVE POSITIVE
[2020-10-25] MEDS: IPRATROPIUM/ALBUTEROL SULFATE 3 ML AMPUL.NEB IH SCH ×4 (03:07→21:07)
[2020-10-25 05:56] LABS: Blood Urea Nitrogen 8 mg/dL (7-17); Calcium 9.2 mg/dL (8.4-10.2); Hemolysis Index 14
[2020-10-25 05:58] LABS: BUN/Creatinine Ratio 11
--- NOTE | 2020-10-25 09:23 | Progress Note ---
Assessment and Plan - Patient Problems (1) Acute coronary syndrome Current Visit: Yes Status: Acute Plan to address problem: Patient at present chest pain-free Still awaiting echocardiogram results. Cardiac isoenzymes unremarkable. Unlikely require any further cardiac evaluation or invasive testing. No EKG changes. (2) Hemorrhagic cyst of ovary Current Visit: Yes Status: Acute Plan to address problem: Hemorrhagic cysts to be followed outpatient Dr. Barajas. Follow-up ultrasound 4 to 6 weeks. Analgesic upon discharge for pain control. (3) Heroin abuse Current Visit: Yes Status: Acute Plan to address problem: Patient educated on the dangers of heroin abuse and withdrawal as well. Patient still undergoing some withdrawal symptoms however much improved. If continues to be stable in a.m. discharge. (4) Hypertensive urgency Current Visit: Yes Status: Acute Plan to address problem: Blood pressure remains suboptimally controlled. We will add amlodipine 10 mg and also add losartan 50 mg 1 tab p.o. daily. If blood pressure improves continue current medications upon discharge. Anticipate discharge in a.m. Subjective Date of service: 10/25/20 Principal diagnosis: Chest pain Interval history: 40-year-old female with a history of heroin use and abuse presents with substernal chest pain graded a 6 hours. No associated shortness of breath or dyspnea on exertion. Minimal nausea and vomiting. Symptoms began 3 days after last heroin use. Patient also describes her typical opioid withdrawal symptoms of arthralgias myalgias. Chest pain described as different new. Patient also found to have hypertensive emergency upon presentation to the ED. At present patient chest pain-free going down for echocardiogram today. Objective - Constitutional Vitals: Vital Signs - 12hr 10/24/20 10/24/20 10/24/20 21:52 22:04 22:14 Temperature Pulse Rate 74 Pulse Rate [ Anterior Bilateral Throughout] Respiratory 18 Rate Respiratory Rate [Anterior Bilateral Throughout] Blood Pressure 184/101 184/101 Blood Pressure 148/77 [Left] O2 Sat by Pulse 73 L 99 Oximetry 10/25/20 10/25/20 10/25/20 00:39 01:36 02:38 Temperature Pulse Rate 68 Pulse Rate [ Anterior Bilateral Throughout] Respiratory Rate Respiratory Rate [Anterior Bilateral Throughout] Blood Pressure 184/101 Blood Pressure [Left] O2 Sat by Pulse 99 99 Oximetry 10/25/20 10/25/20 10/25/20 04:30 07:34 07:55 Temperature 98.4 F 97.9 F Pulse Rate 66 67 Pulse Rate [ 62 Anterior Bilateral Throughout] Respiratory 18 18 Rate Respiratory 18 Rate [Anterior Bilateral Throughout] Blood Pressure 171/88 173/97 Blood Pressure [Left] O2 Sat by Pulse 99 100 100 Oximetry General appearance: Present: no acute distress, well-nourished - EENT Eyes: PERRL, EOM intact ENT: hearing intact, clear oral mucosa Ears: bilateral: normal - Neck Neck: supple, normal ROM - Respiratory Respiratory effort: normal Respiratory: bilateral: CTA - Breasts Breasts: normal - Cardiovascular Rhythm: regular Heart Sounds: Present: S1 & S2. Absent: gallop, rub Extremities: pulses intact, No edema, normal color, Full ROM - Gastrointestinal General gastrointestinal: Present: soft, non-tender, non-distended, normal bowel sounds - Genitourinary Female genitourinary: normal - Integumentary Integumentary: clear, warm, dry - Musculoskeletal Musculoskeletal: 1, strength equal bilaterally - Neurologic Neurologic: moves all extremities - Psychiatric Psychiatric: memory intact, appropriate mood/affect, intact judgment & insight - Labs CBC & Chem 7: 10/24/20 22:55 10/25/20 04:35 Labs: Abnormal lab results 10/24/20 10/24/20 10/24/20 Range/Units 11:35 11:35 11:35 RBC 5.24 H (3.65-5.03) M/mm3 MCH 26 L (28-32) pg Lymph % (Auto) (13.4-35.0) % [place] % (Auto) (0.0-7.3) % Sodium 134 L (137-145) mmol/L Ur Specific [place] (1.003-1.030) Salicylates < 0.3 L (2.8-20.0) mg/dL Acetaminophen (10.0-30.0) ug/mL 10/24/20 10/24/20 10/25/20 Range/Units 11:35 22:55 00:12 RBC (3.65-5.03) M/mm3 MCH 26 L (28-32) pg Lymph % (Auto) 43.3 H (13.4-35.0) % [place] % (Auto) 8.7 H (0.0-7.3) % Sodium (137-145) mmol/L Ur Specific [place] 1.051 H (1.003-1.030) Salicylates (2.8-20.0) mg/dL Acetaminophen 6.7 L (10.0-30.0) ug/mL 10/25/20 Range/Units 04:35 RBC (3.65-5.03) M/mm3 MCH (28-32) pg Lymph % (Auto) (13.4-35.0) % [place] % (Auto) (0.0-7.3) % Sodium 135 L (137-145) mmol/L Ur Specific [place] (1.003-1.030) Salicylates (2.8-20.0) mg/dL Acetaminophen (10.0-30.0) ug/mL HEART Score - HEART Score EKG: Normal Age: < 45 Risk factors: 1-2 risk factors Troponin: Troponin T < 0.010 ng/mL (0.00-0.029) 10/25/20 04:35 Troponin: < normal limit
[2020-10-25] MEDS: HYDROmorphone 1 MG/1 ML INJ IV PRN ×4 (09:37→21:28)
[2020-10-25] MEDS: HEPARIN 5,000 UNIT/1 ML VIAL SUB-Q SCH ×2 (09:38→21:27)
[2020-10-25] MEDS: FAMOTIDINE 20 MG TAB PO SCH ×2 (09:38→21:27)
--- NOTE | 2020-10-25 09:38 | Event Note ---
Date: 10/25/20 Chart reviewed ovarian cyst noted on imaging reports. 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
[2020-10-25] MEDS ORDERED: CLOPIDOGREL 75 MG TAB PO SCH (10:00)
[2020-10-25] MEDS ORDERED: amLODIPine 5 MG TAB PO SCH ×2 (10:00)
--- NOTE | 2020-10-25 11:06 | Electrocardiograph Report ---
[facility] Test Date: 2020-10-24 Test Time: 10:52:35 Pat Name: RODRIGO BROWN Department: Room: A466 1 Gender: F Wireless Store Manager: REINIER : 1980 Requested By: ROBERT FLANNERY Order Number: [id number] Reading MD: Artemio Díaz Measurements Intervals [place] Rate: 78 P: 35 LA: 144 QRS: 13 QRSD: 91 T: 24 QT: 401 QTc: 456 Interpretive Statements Sinus rhythm Anteroseptal infarct, old No previous ECG available for comparison Electronically Signed On 10-25-2020 11:06:11 EDT by Artemio Díaz
--- NOTE | 2020-10-25 12:38 | Consultation ---
History of Present Illness Consult date: 10/25/20 Requesting physician: JEFFREY AQUINO Reason for consult: other (Ovarian cyst) History of present illness: This is a 40-year-old black female para 5-0-1-5 whose menses started on 2 days ago. Patient is presently on no contraceptives. Her last Pap smear was in 2019 and was normal. Patient has never had a mammogram. Ms. Cano presented to the emergency room with complaints of substernal and right sided chest pain with hypertensive emergency. During the patient's work-up for rule out possible aortic dissection ovarian cyst was seen on CT scan. This was followed by pelvic ultrasound to rule out ovarian torsion. 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 denies: abnormal PAP smear, cancer, fibroids, gonorrhea, herpes, HIV Social history: IV drug use, full code, other - Obstetrical History : 6 Para: 5 Hx # Term Pregnancies: 5 Number of Pregnancies: 0 Spontaneous Abortions: 1 (Ectopic ) Induced : 0 Number of Living Children: 5 Medications and Allergies Allergies Allergy/AdvReac Type Severity Reaction Status Date / Time aspirin Allergy Vomiting Verified 10/24/20 21:50 ibuprofen [From Motrin] Allergy Vomiting Verified 10/24/20 21:50 Home Medications Medication Instructions Recorded Confirmed Last Taken Type No Known Home Medications [No 10/25/20 10/25/20 Unknown History Reported Home Medications] Active Meds: Active Medications Acetaminophen (Acetaminophen 325 Mg Tab) 650 mg PO Q6H PRN PRN Reason: Pain, Mild (1-3) Albuterol (Albuterol 2.5 Mg/3 Ml Nebu) 2.5 mg IH Q4HRT PRN PRN Reason: Shortness Of Breath Albuterol/Ipratropium (Ipratropium/Albuterol Sulfate 3 Ml Ampul.Neb) 1 ampul IH Q6HRT [facility] Last Admin: 10/25/20 07:34 Dose: 1 ampul Documented by: Amlodipine Besylate (Amlodipine 10 Mg Tab) 10 mg PO DAILY [facility] Atorvastatin Calcium (Atorvastatin 40 Mg Tab) 40 mg PO QHS [facility] Last Admin: 10/24/20 22:16 Dose: 40 mg Documented by: Clonidine HCl (Clonidine 0.2 Mg Tab) 0.2 mg PO Q4H PRN PRN Reason: SBP >/=160; DBP >/=100 Famotidine (Famotidine 20 Mg Tab) 20 mg PO BID [facility] Last Admin: 10/25/20 09:38 Dose: 20 mg Documented by: Heparin Sodium (Porcine) (Heparin 5,000 Unit/1 Ml Vial) 5,000 unit SUB-Q Q12HR [facility] Last Admin: 10/25/20 09:38 Dose: 5,000 unit Documented by: Hydralazine HCl (Hydralazine 20 Mg/1 Ml Inj) 10 mg IV Q6H PRN PRN Reason: SBP >/=160; DBP >/=100 Hydromorphone HCl (Hydromorphone 1 Mg/1 Ml Inj) 0.5 mg IV Q3H PRN PRN Reason: Pain , Severe (7-10) Last Admin: 10/25/20 09:37 Dose: 0.5 mg Documented by: Losartan Potassium (Losartan 50 Mg Tab) 50 mg PO QDAY [facility] Ondansetron HCl (Ondansetron 4 Mg/2 Ml Inj) 4 mg IV Q8H PRN PRN Reason: Nausea And Vomiting Oxycodone/Acetaminophen (Oxycodone /Acetaminophen 5-325mg Tab) 1 tab PO Q6H PRN PRN Reason: Pain, Moderate (4-6) Last Admin: 10/25/20 00:10 Dose: 1 tab Documented by: Sodium Chloride (Sodium Chloride 0.9% 10 Ml Flush Syringe) 10 ml IV BID [facility] Last Admin: 10/25/20 09:38 Dose: 10 ml Documented by: Sodium Chloride (Sodium Chloride 0.9% 10 Ml Flush Syringe) 10 ml IV PRN PRN PRN Reason: LINE FLUSH Tramadol HCl (Tramadol 50 Mg Tab) 50 mg PO Q6H PRN PRN Reason: Pain, Moderate (4-6) Review of Systems Genitourinary: vaginal bleeding (Patient is presently on her menses) - Vital Signs Vital signs: Vital Signs Temp Pulse Resp BP Pulse Ox 98.5 F 82 22 202/109 100 10/24/20 10:47 10/24/20 10:47 10/24/20 10:47 10/24/20 10:47 10/24/20 10:47 Temp Pulse Resp BP Pulse Ox 97.9 F 67 18 173/97 100 10/25/20 07:55 10/25/20 07:55 10/25/20 07:55 10/25/20 07:55 10/25/20 07:55 Results Result Diagrams: 10/24/20 22:55 10/25/20 04:35 Abnormal lab results 10/24/20 10/24/20 10/24/20 Range/Units 11:35 11:35 11:35 MCH (28-32) pg Lymph % (Auto) (13.4-35.0) % [place] % (Auto) (0.0-7.3) % Sodium 134 L (137-145) mmol/L Ur Specific [place] (1.003-1.030) Salicylates < 0.3 L (2.8-20.0) mg/dL Acetaminophen 6.7 L (10.0-30.0) ug/mL 10/24/20 10/25/20 10/25/20 Range/Units 22:55 00:12 04:35 MCH 26 L (28-32) pg Lymph % (Auto) 43.3 H (13.4-35.0) % [place] % (Auto) 8.7 H (0.0-7.3) % Sodium 135 L (137-145) mmol/L Ur Specific [place] 1.051 H (1.003-1.030) Salicylates (2.8-20.0) mg/dL Acetaminophen (10.0-30.0) ug/mL All other labs normal. Ultrasound: report reviewed CT scan - pelvis: report reviewed Assessment and Plan - Patient Problems (1) Hemorrhagic cyst of ovary Current Visit: Yes Status: Acute Plan to address problem: Discussed the diagnosis with the patient. Patient is without acute abdomen. Discussed the nature of ovarian cyst and hemorrhagic ovarian cysts can cause pain but usually spontaneously resolve. Patient's ultrasound ruled out ovarian torsion. Agree with assessment by radiologist patient needs a repeat ultrasound in 4 to 6 weeks. Patient may need analgesia due to the size of the ovarian cyst. This condition can be followed up on outpatient basis. I gave the patient our office information and patient can make an appointment once discharged from hospital. Thank you for this consultation we will sign off please contact me if further assistance is needed.
[2020-10-25] MEDS: LOSARTAN 50 MG TAB PO SCH (13:43)
[2020-10-25] MEDS: amLODIPine 10 MG TAB PO SCH (13:48)
[2020-10-26] MEDS: IPRATROPIUM/ALBUTEROL SULFATE 3 ML AMPUL.NEB IH SCH ×3 (02:51→13:12)
[2020-10-26] MEDS: HYDROmorphone 1 MG/1 ML INJ IV PRN ×2 (03:17→08:45)
[2020-10-26] MEDS: oxyCODONE /ACETAMINOPHEN 5-325MG TAB PO PRN (05:53)
[2020-10-26] MEDS ORDERED: REGADENOSON 0.4 MG/5 ML INJ IV ONE ×2 (09:28→09:34)
--- NOTE | 2020-10-26 09:42 | Discharge Summary ---
Providers - Providers Date of Admission: 10/25/20 01:59 Date of discharge: 10/26/20 Attending physician: UNA ACOSTA 10/24/20 Consult to Cardiac Rehabilitation [CONS] Routine Reason For Exam: Phase I 10/24/20 21:31 Consult to Physician [CONS] Routine Comment: Dr. Kirkland spoke with Dr. Moran @ 2019 Consulting Provider: NILE MORAN Physician Instructions: Reason For Exam: 6.7 cm complex left adnexal cyst +tenderness Primary care physician: PODODERMATOLOGIST Hospitalization Reason for admission: Chest pain. Condition: Stable Hospital course: 40-year-old female with a history of heroin use and abuse presents with substernal chest pain graded a 6 hours. No associated shortness of breath or dyspnea on exertion. Minimal nausea and vomiting. Symptoms began 3 days after last heroin use. Patient also describes her typical opioid withdrawal symptoms of arthralgias myalgias. Chest pain described as different new. Patient also found to have hypertensive emergency upon presentation to the ED. the patient underwent echocardiogram which revealed EF of 55% and mild pulmonary hypertens ion. CTA of the chest abdomen pelvis revealed no significant abnormality of the chest, abdomen or pelvis. No evidence of aortic dissection. However, patient was noted to have 6.7 cm adnexal cyst. ROOFING SALES REPRESENTATIVE evaluated the patient and discussed the nature of ovarian cyst and hemorrhagic ovarian cysts can cause pain but usually spontaneously resolve. Patient's ultrasound ruled out ovarian torsion. Agree with assessment by radiologist patient needs a repeat ultrasound in 4 to 6 weeks. ROOFING SALES REPRESENTATIVE also reported patient could be followed up on outpatient basis. Patient is also undergo stress test today and if found to be negative will discharge home. Dedicated discharge time 35 minutes Disposition: 01 HOME / SELF CARE / HOMELESS Final Discharge Diagnosis (Prints w/discharge instructions): Chest pain, hemorrhagic cyst of ovary, history of heroin abuse, accelerated hypertension. Core Measure Documentation - Palliative Care Palliative Care/ Comfort Measures: Not Applicable - Core Measures Any of the following diagnoses?: none Exam - Constitutional Vitals: Temp Pulse Resp BP Pulse Ox 98.0 F 68 20 176/80 100 10/26/20 04:16 10/26/20 08:03 10/26/20 08:03 10/26/20 04:16 10/26/20 07:52 General appearance: Present: no acute distress, well-nourished - EENT Eyes: Present: PERRL ENT: hearing intact, clear oral mucosa - Neck Neck: Present: supple, normal ROM - Respiratory Respiratory effort: normal Respiratory: bilateral: CTA - Cardiovascular Heart Sounds: Present: S1 & S2. Absent: rub, click - Extremities Extremities: pulses symmetrical, No edema Peripheral Pulses: within normal limits - Abdominal General gastrointestinal: Present: soft, non-tender, non-distended, normal bowel sounds Female genitourinary: Present: normal - Integumentary Integumentary: Present: clear, warm, dry - Musculoskeletal Musculoskeletal: gait normal, strength equal bilaterally - Psychiatric Psychiatric: appropriate mood/affect, intact judgment & insight - Neurologic Neurologic: CNII-XII intact, moves all extremities Plan Activity: advance as tolerated Weight Bearing Status: Weight Bear as Tolerated Diet: regular Follow up with: PRIMARY CARE,MD [Primary Care Provider] - 3-5 Days Prescriptions: Losartan [Cozaar] 50 mg PO QDAY #30 tablet AtorvaSTATin [Lipitor] 40 mg PO QHS #30 tablet Famotidine [Pepcid] 20 mg PO BID #60 tablet oxyCODONE /ACETAMINOPHEN [Percocet 5/325 mg] 1 tab PO Q6H PRN #7 tablet PRN Reason: Pain, Moderate (4-6) NIFEdipine XL [Procardia Xl] 60 mg PO Q12HR #60 tab traMADoL [Ultram 50 MG tab] 50 mg PO Q6H PRN #10 tablet PRN Reason: Pain, Moderate (4-6)
[2020-10-26 11:09] VITALS: BP 156/77
[2020-10-26] MEDS: LOSARTAN 50 MG TAB PO SCH (11:10)
[2020-10-26] MEDS: FAMOTIDINE 20 MG TAB PO SCH (11:10)
[2020-10-26] MEDS: amLODIPine 10 MG TAB PO SCH (11:10)
[2020-10-26] MEDS: HEPARIN 5,000 UNIT/1 ML VIAL SUB-Q SCH (11:11)
[2020-10-26] MEDS ORDERED: NIFEdipine XL 60 MG TAB PO SCH (12:00)
--- NOTE | 2020-10-26 17:40 | Electrocardiograph Report ---
[facility] Test Date: 2020-10-25 Test Time: 09:01:02 Pat Name: RODRIGO BROWN Department: Room: A466 1 Gender: F Form Designer: ANTELMO : 1980 Requested By: DEVON VERONICA Order Number: [id number] Reading MD: Amanda Russell Measurements Intervals [place] Rate: 63 P: 15 [place]: 147 QRS: 10 QRSD: 94 T: 28 QT: 409 QTc: 419 Interpretive Statements Sinus rhythm Compared to ECG 10/24/2020 10:52:35 No significant change Electronically Signed On 10-26-2020 17:39:46 EDT by Amanda Russell
--- NOTE | 2020-10-26 17:42 | Electrocardiograph Report ---
[facility] Test Date: 2020-10-25 Test Time: 12:49:38 Pat Name: RODRIGO BROWN Department: Room: A466 1 Gender: F Digital Community Manager: ANTELMO : 1980 Requested By: DEVON VERONICA Order Number: [id number] Reading MD: Amanda Russell Measurements Intervals [place] Rate: 71 P: 8 [place]: 154 QRS: 22 QRSD: 92 T: 13 QT: 387 QTc: 422 Interpretive Statements Sinus rhythm Normal ECG Compared to ECG 10/25/2020 09:01:02 No significant change Electronically Signed On 10-26-2020 17:42:35 EDT by Amanda Russell
== END 2020-10-26 12:43 | disposition home or self-care (01) ==
LOC: ED 10:38 → 4A 10-25 01:59
PROVIDERS: ADMIT Hospitalist; ATTEND Hospitalist
DX: I24.9 Acute ischemic heart disease, unspecified (principal); I16.0 Hypertensive urgency; N83.209 Unspecified ovarian cyst, unspecified side; F11.13 Opioid abuse with withdrawal; R06.02 Shortness of breath
CPT/HCPCS: 36415; 71046; 71275; 74174; 76856; 78452; 80048; 80053; 80307; 81001; 84484; 84703; 85025; 85610; 85730; 93005; 93017; 93306; 94640; 96372; 96374; 96375; 96376; 99291; 99292; A9270; A9502; G0378; J1170; J1644; J2270; J2405; Q9967; 80320; G0480; J2785